=== PATIENT | male | born 1955 | race Caucasian/White ===

== ENCOUNTER → 2017-09-16 | Outpatient (CLI) | payer BC | LOC: M SMT 09:13 | PROVIDERS: ATTEND Urology | DX: Z08 Encounter for follow-up examination after completed treatment for malignant neoplasm (principal); Z85.46 Personal history of malignant neoplasm of prostate ==

== ENCOUNTER → 2018-09-17 | Outpatient (CLI) | payer BC | LOC: M SMT 13:36 | PROVIDERS: ATTEND Urology | DX: Z85.46 Personal history of malignant neoplasm of prostate (principal) ==

== ENCOUNTER → 2019-10-14 | Outpatient (CLI) | payer BC ==
[~2019-10-14] MED LIST: AMLO10CA22 PO; COMB0.2S OU; HYDR12CA PO; TRAV04OPD OU; ZYLO300T6 PO
== END ==
LOC: M PLALAB 13:52
PROVIDERS: ATTEND Urology
DX: Z85.46 Personal history of malignant neoplasm of prostate (principal)

== ENCOUNTER → 2019-10-19 | Outpatient (CLI) | payer BC ==
--- NOTE | 2019-10-19 14:59 | REP ---
MRI LEFT SHOULDER WITHOUT CONTRAST: HISTORY: Osteoarthritis left shoulder. No known injury. Pain radiating down the left arm. TECHNIQUE: Axial, oblique coronal, and oblique sagittal imaging planes are utilized. T1- and T2-weighted scans are obtained. MRI FINDINGS: There is moderate osteoarthritis of the acromioclavicular joint with hypertrophy, joint fluid, and spurring. There is subcortical cyst formation on either side of the AC joint. There is minimal inferolateral spurring of the acromion process. A moderate subacromial subdeltoid bursal effusion is seen on T2-weighted scans. There is a small glenohumeral joint effusion. There is a septated periarticular cyst at the inferior aspect of the glenoid measuring 19 mm in greatest diameter. There is a defect in the anterior inferior labrum, and this is felt to be a para labral cyst associated with a labral tear. There is an intraosseous subcortical cyst in this segment of the glenoid bone as well. T2-weighted scans demonstrate a full-thickness distal supraspinatus cuff tear approximately a centimeter from its distal attachment. There is diffuse tendonitis-tendinosis change. The infraspinatus tendon appears to be intact. The subscapularis tendon is unremarkable. Biceps tendon is in the bony bicipital groove and appears to be intact. Posterior labrum cartilage is unremarkable. There is some mild edema along the fibers of the subscapularis tendon in its scapular insertion. IMPRESSION: 1. Full-thickness distal supraspinatus cuff tear. Subacromial subdeltoid bursal effusion. 2. Advanced AC joint osteoarthritis. 3. Inferior and anterior aspect labral cartilage tear with subcortical cyst formation and para labral cyst formation. 4. Edema at the scapular origin of the subscapularis muscle. Electronically Signed by Dank Sebastian MD 10/19/2019 07:06 P
== END ==
LOC: M RAD 07:40
PROVIDERS: ATTEND Orthopaedic Surgery Sports Medicine
DX: M25.412 Effusion, left shoulder (principal); M75.122 Complete rotator cuff tear or rupture of left shoulder, not specified as traumatic; M71.312 Other bursal cyst, left shoulder; M19.012 Primary osteoarthritis, left shoulder; S43.492A Other sprain of left shoulder joint, initial encounter; Y92.9 Unspecified place or not applicable; Y93.9 Activity, unspecified; Y99.9 Unspecified external cause status

== ENCOUNTER → 2019-10-26 | Outpatient (REF) | payer BC ==
[2019-10-26 12:54] LABS: BLOOD UREA NITROGEN 11 MG/DL (7-18); CALCIUM LEVEL 8.7 MG/DL (8.8-10.2); CARBON DIOXIDE LEVEL 28 MEQ/L (21-32); CHLORIDE LEVEL 103 MEQ/L (98-107); CREATININE FOR GFR 0.77 MG/DL (0.70-1.30); GLOMERULAR FILTRATION RATE > 60.0 (>49); GLUCOSE, FASTING 99 MG/DL (70-100); POTASSIUM SERUM 4.1 MEQ/L (3.5-5.1); SODIUM LEVEL 137 MEQ/L (136-145)
== END ==
LOC: M LABDRAW1 12:02
PROVIDERS: ATTEND Urology
DX: R97.21 Rising PSA following treatment for malignant neoplasm of prostate (principal)

== ENCOUNTER → 2019-11-01 | Outpatient (CLI) | payer BC ==
--- NOTE | 2019-11-01 12:11 | REP ---
Radionuclide bone scan: Whole-body study. History: Rising PSA. Malignant prostate neoplasm. Comparison bone scan is from August 26, 2016. Technique: 22.0 mCi of technetium 99m MDP is injected and standard whole body bone scan imaging was acquired. Scintigraphic findings: There is normal distribution of skeletal tracer with uptake in bilateral kidneys and in the urinary bladder. There is arthritic uptake in the acromioclavicular joints bilaterally. Some osteoarthritic uptake is seen in the facet joints of the cervical spine similar to the prior study. There is increased uptake in the superior margin of the right hip joint today which is a subtle change from the prior study. This appearance is suggestive of arthropathy associated uptake, but I would suggest radiographs of the right hip to be obtained. There is also increased uptake in the region of the left heel. There is a focus of increased uptake in the right hand in what appears to be the second or third distal metacarpal or metacarpal phalangeal joint. This is visible in retrospect on the prior bone scans including the 2013 study and is consistent with arthropathy. There is mildly increased uptake in the manubrial clavicular joints bilaterally also unchanged from both prior studies. Impression: No compelling evidence of metastatic disease. A new area of increased uptake is seen at the right hip superiorly. Comparison radiographs suggested. Electronically Signed by Dank Sebastian MD 11/01/2019 06:53 P
== END ==
LOC: M RAD 07:41
PROVIDERS: ATTEND Urology
DX: R97.21 Rising PSA following treatment for malignant neoplasm of prostate (principal)
CPT/HCPCS: 78306; A9503

== ENCOUNTER → 2019-11-07 | Outpatient (CLI) | payer BC ==
[~2019-11-07] MED LIST changes: +ISOVUE-370 76% 100ML VIAL (Q9967) As Ordered ONE
--- NOTE | 2019-11-07 09:35 | REP ---
Clinical: History of prostate cancer with elevated PSA level. Technique: Axial contrast enhanced images from the lung bases to the pubic symphysis using 100 ml Isovue 370 intravenous contrast material with coronal and sagittal re-formations as well as delayed images of the abdomen. Comparison: 08/26/2016. Findings: Hepatic steatosis noted without focal hepatic lesion. Spleen, pancreas, gallbladder, bilateral adrenal glands and kidneys are normal. The enteric system is without obstruction or acute inflammatory process and a a sigmoid diverticula noted without acute diverticulitis. Pelvis demonstrates normal bladder and evidence for prior prostatectomy. There is a single new 16 mm lymph node along the left pelvic sidewall (image 108). No further adenopathy noted. No ascites. No obvious mass lesion. Osseous structures demonstrate degenerative changes without definite evidence for bony metastases. Impression: 1. A single new 16 mm lymph node along the left pelvic sidewall is nonspecific. No further adenopathy, or evidence for recurrence/metastatic disease noted. 2. Hepatic steatosis. 3. Scattered sigmoid diverticula. Electronically Signed by Gaetano Lincoln MD 11/07/2019 09:27 A
== END ==
LOC: M RAD 07:44
PROVIDERS: ATTEND Urology
DX: K57.30 Diverticulosis of large intestine without perforation or abscess without bleeding (principal); K76.0 Fatty (change of) liver, not elsewhere classified; R97.21 Rising PSA following treatment for malignant neoplasm of prostate
CPT/HCPCS: 74177; Q9967

== ENCOUNTER → 2019-11-17 | Outpatient (CLI) | payer BC ==
[~2019-11-17] MED LIST changes: -ISOVUE-370 76% 100ML VIAL (Q9967) As Ordered ONE
== END ==
LOC: M OUTALCOH 08:56
PROVIDERS: ATTEND Psychiatry & Neurology Addiction Medicine
DX: Z03.89 Encounter for observation for other suspected diseases and conditions ruled out (principal)

== ENCOUNTER 2019-11-21 15:56 | Outpatient (RCR) | payer BC | END 2019-11-26 | LOC: M OUTALCOH 15:56 | PROVIDERS: ATTEND Psychiatry & Neurology Addiction Medicine | DX: Z03.89 Encounter for observation for other suspected diseases and conditions ruled out (principal) ==

== ENCOUNTER → 2019-12-05 | Outpatient (REF) | payer BC | LOC: M LABSMT 15:21 | PROVIDERS: ATTEND Urology | DX: Z85.46 Personal history of malignant neoplasm of prostate (principal) ==

== ENCOUNTER → 2020-05-17 | Outpatient (CLI) | payer OTHER, SELFPAY | LOC: M PLALAB 11:12 | PROVIDERS: ATTEND Urology | DX: C61 Malignant neoplasm of prostate (principal); R97.21 Rising PSA following treatment for malignant neoplasm of prostate ==

== ENCOUNTER → 2020-10-05 | Outpatient (CLI) | payer MEDICARE ==
[~2020-10-05] MED LIST changes: +ESCI10TA16 PO
== END ==
LOC: M PLALAB 13:18
PROVIDERS: ATTEND Urology
DX: Z12.5 Encounter for screening for malignant neoplasm of prostate (principal)
CPT/HCPCS: 36415; G0103

== ENCOUNTER → 2020-10-07 | Outpatient (CLI) | payer BC, MEDICARE, SELFPAY ==
[~2020-10-07] MED LIST changes: -ESCI10TA16 PO; +ESCI10TA2 PO
== END ==
LOC: M LABSMTC 08:11
PROVIDERS: ATTEND Anesthesiology
DX: Z01.812 Encounter for preprocedural laboratory examination (principal); Z20.822 Contact with and (suspected) exposure to COVID-19

== ENCOUNTER 2020-10-12 06:25 | Day surgery (SDC) | payer MEDICARE ==
[~2020-10-12] VITALS: Ht 160 cm; Wt 91.2 kg
[~2020-10-12 06:25] MED LIST changes: +ESCI10TA16 PO; -ESCI10TA2 PO
--- OUTSIDE RECORDS SUMMARY | 2020-10-12 06:29 | CCD | Continuity of Care Document ---
Author Author Benigno WINTER M.D. Organization Unknown Address [address] [place] [id number] Phone [phone] Problems Active Problems Provider Date Benign essential hypertension Kirit Winter M.D. Onset: 07/25/2013 Essential hypertension Kirit Winter M.D. Onset: 2014 Social History Type Date Description Comments Sex Unknown ETOH Use Dinks 4 Drinks Liquor per day Tobacco Use Start: Unknown End: Unknown Patient is a former smoker Cigarettes- Quit 2004 Recreational Drug Use Denies Drug Use Allergies, Adverse Reactions, Alerts Active Allergies Reaction Severity Comments Date No Known Drug Allergy 2012 Medications Active Medications SIG Qnty Indications Ordering Provide r Date Lexapro 10mg Tablets 1 by mouth every day 30tabs Kirit Winter M.D. 10/03/2020 Cyclobenzaprine HCL 10mg Tablets take one tablet by mouth at bedtime as needed 30tabs Tamiko Winter M.D. 03/11/2019 Shingrix 50mcg/0.5ML Suspension Re c as directed 1units Kirit Winter M.D. 08/30/20 18 Amlodipine Besylate/Benazepril Hydrochlo ride 10-20mg Capsules take 1 capsule daily, maximum daily dose 1 90caps Kirit Winter M.D. 12/01/2016 Allopurinol 300mg Tablets take 1 tablet daily 90tabs Kirit Winter M.D. 04/15/20 16 Hydrochlorothiazide 12.5mg Capsule s take 1 capsule daily 90Kirit Rogers M.D. 12/26/19 16 Travatan Z 0.004% Solution as directed Unknown 07/25/2013 Combigan 0.2-0.5% Solution 1 qtt both eyes twice a day Unknown Acetaminophen 500mg Tablets 2 tabs by mouth qam OTC Unknown Immunizations CPT Code Status Date Vaccine Lot # 33967 Given 08/24/2018 Influenza Virus Vaccine, Quadrivalent, Slit Virus, Im Use 3Y & Up [id number] 53857 Given 08/11/2017 Influenza Virus Vaccine, Quadrivalent, Slit Virus, Im Use 3Y & Up [id number] 10313 Given 07/25/2016 Influenza Virus Vaccine, Quadrivalent, Slit Virus, Im Use 3Y & Up [id number] 13941 Given 06/27/2015 Influenza Virus Vac. Split Virus Individuals 3 Years And Above [id number] Vital Signs Date Vital Result Comment 10/03/2020 9:54am BP Systolic 120 mmHg BP Diastolic 70 mmHg Body Temperature 97.5 F Heart Rate 70 /min Respiratory Rate 12 /min Height 63 inches 5'3" Weight 206.00 lb [place] Body Weight 124 lb BMI (Body Mass Index) 36.5 kg/m2 O2 % BldC Oximetry 97 % 03/23/2020 10:42am BP Systolic 116 mmHg BP Diastolic 70 mmHg Body Temperature 97.5 F Heart Rate 86 /min Respiratory Rate 18 /min Height 63 inches 5'3" Weight 195.00 lb [place] Body Weight 124 lb BMI (Body Mass Index) 34.5 kg/m2 O2 % BldC Oximetry 96 % Results Test Acquired Date Facility Test Result H/L Range Note CMP 10/03/2020 [facility] Glu 161 mg/dL High 70 - 110 1 BUN 11 mg/dL 8 - 23 Creat 0.7 mg/dL 0.7 - 1.2 BUN/Creatinine Ratio 16.3 CALC Na 140 mmol/L 136 - 145 K 3.1 mmol/L Low 3.5 - 5.1 CL 103.0 mmol/L 98.0 - 107.0 Co2 22.4 mmol/L 22.0 - 29.0 CA 8.7 mg/dL 8.6 - 10.2 TP 6.3 g/dL Low 6.6 - 8.7 Alb 4.3 g/dL 3.5 - 5.2 A/G Ratio 2.1 CALC Globulin 2.0 CALC Alp 62.3 U/L 40 - 129 Alt (SGPT) 92 U/L High 0 - 41 Ast (Sgot) 78 U/L High 0 - 40 Tbili 0.41 mg/dL 0.0 - 1.2 Osmolality-Calculated 281.8 CALC Anion Gap 17 mmol/L eGFR 112 # Calc 2 eGFR Non-Afr. Cypriot 97 # Calc 3 Laboratory test finding 10/03/2020 [facility] Uric Acid 6.2 mg/dL 3.4 - 7.0 1 CHRONIC KIDNEY DISEASE STAGI NG PER NKF: MALE GFR INTERPRETATION: 20-49 YRS: >60 mL/min Normal 50-59 YRS: >56 mL/min Normal 60-69 YRS: >49 mL/min Normal 70-79 YRS: >42 mL/min Normal 80 and above >35 mL/min Normal FEMALE GRF INTERPRETATION: 20-39 YRS: >60 mL/min Normal 40-49 YRS: >58 mL/min Normal 50-59 YRS: >51 mL/min Normal 60-69 YRS: >45 mL/min Normal 70-79 YRS: >39 mL/min Normal 80 and above >32 mL/min Normal 2 CKD-EPI 3 CKD-EPI Procedures Description No Information Available Medical Devices Description No Information Available Encounters Type Date Location Provider Dx Diagnosis Office Visit 10/03/2020 10:20a [place] [facility] Kirit Winter M. D. I10 Essential (primary) hypertension R74.01 Elevation of levels of liver transaminase levels M10.9 Gout, unspecified Assessments Date Code Description Provider 10/03/2020 I10 Essential (primary) hypertension Kirit Winter M.D. 10/03/2020 R74.01 Elevation of levels of liver tra nsaminase levels Kirit Winter M.D. 10/03/2020 M10.9 Gout, unspecified Baljit Winter M.D. Plan of Treatment Future Appointment(s):* 11/12/2020 11:00 am - Kirit Winter M.D. at [facility] Functional Status Description No Information Available Mental Status Description No Information Available Referrals Refer to Reason for Referral Status Appt Date [facility] right hip pain- eval and rx Sent [address] [place] [address] [phone]
--- OUTSIDE RECORDS SUMMARY | 2020-10-12 06:29 | CCD | Continuity of Care Document ---
Author Author Benigno WINTER M.D. Organization Unknown Address [address] [place] [address] Phone [phone] Problems Active Problems Provider Date Benign essential [...] by mouth at bedtime as needed 30tabs Tmaiko Winter M.D. 03/11/2019 Shingrix 50mcg/0.5ML Suspension Re [...] CPT Code Status Date Vaccine Lot # [id number] Given 08/24/2018 Influenza Virus Vaccine, Quadrivalent, Slit Virus, Im Use 3Y & Up [id number] 89011 Given 08/11/2017 Influenza Virus Vaccine, Quadrivalent, Slit Virus, Im Use 3Y & Up [id number] 40808 Given 07/25/2016 Influenza Virus Vaccine, Quadrivalent, Slit Virus, Im Use 3Y & Up [id number] 03147 Given 06/27/2015 Influenza Virus Vac. Split Virus Individuals 3 Years And Above [id number] Vital Signs Date Vital Result Comment 10/03/2020 9:54am BP Systolic 120 mmHg BP Diastolic 70 mmHg Body Temperature 97.5 F Heart Rate 70 /min Respiratory Rate 12 /min Height 63 inches 5'3" Weight 206.00 lb [place] Body Weight 124 lb BMI (Body Mass Index) 36.5 kg/m2 O2 % BldC Oximetry 97 % 03/23/2020 10:42am BP Systolic 116 mmHg BP Diastolic 70 mmHg Body Temperature 97.5 F Heart Rate 86 /min Respiratory Rate 18 /min Height 63 inches 5'3" Weight 195.00 lb [place] Body Weight 124 lb BMI (Body Mass [...] eGFR 112 # Calc 2 eGFR Non-Afr. Turkish 97 # Calc 3 Laboratory test finding [...] Provider Dx Diagnosis Office Visit 10/03/2020 10:20a [place] [facility] Kirit Winter M. D. I10 Essential [...] 11:00 am - Kirit Winter M.D. at [facility] Functional Status Description No Information Available Mental Status Description No Information Available Referrals Refer to Reason for Referral Status Appt Date [facility] right hip pain- eval and rx Sent [address] [place] [address] [phone]
--- OUTSIDE RECORDS SUMMARY | 2020-10-12 06:29 | CCD | Continuity of Care Document ---
Author Author Benigno WINTER M.D. Organization Unknown Address [address] [place] [phone] Phone [phone] Problems Active Problems Provider Date Benign essential [...] CPT Code Status Date Vaccine Lot # [id number] Given 08/24/2018 Influenza Virus Vaccine, Quadrivalent, Slit Virus, Im Use 3Y & Up [id number] 56096 Given 08/11/2017 Influenza Virus Vaccine, Quadrivalent, Slit Virus, Im Use 3Y & Up [id number] 58513 Given 07/25/2016 Influenza Virus Vaccine, Quadrivalent, Slit Virus, Im Use 3Y & Up [id number] 64217 Given 06/27/2015 Influenza Virus Vac. Split Virus Individuals 3 Years And Above [id number] Vital Signs Date Vital Result Comment 10/03/2020 9:54am BP Systolic 120 mmHg BP Diastolic 70 mmHg Body Temperature 97.5 F Heart Rate 70 /min Respiratory Rate 12 /min Height 63 inches 5'3" Weight 206.00 lb [place] Body Weight 124 lb BMI (Body Mass Index) 36.5 kg/m2 O2 % BldC Oximetry 97 % 03/23/2020 10:42am BP Systolic 116 mmHg BP Diastolic 70 mmHg Body Temperature 97.5 F Heart Rate 86 /min Respiratory Rate 18 /min Height 63 inches 5'3" Weight 195.00 lb [place] Body Weight 124 lb BMI (Body Mass Index) 34.5 kg/m2 O2 % BldC Oximetry 96 % Results Description No Information Available Procedures Description No Information Available Medical Devices Description No Information Available Encounters Type Date Location Provider Dx Diagnosis Office Visit 10/03/2020 10:20a [place] [facility] Kirit Winter M. D. I10 Essential (primary) hypertension R74.01 Elevation of levels of liver transaminase levels M10.9 Gout, unspecified Assessments Date Code Description Provider 10/03/2020 I10 Essential (primary) hypertension Kirit Winter M.D. 10/03/2020 R74.01 Elevation of levels of liver tra nsaminase levels Kirit Winter M.D. 10/03/2020 M10.9 Gout, unspecified Baljit Winter M.D. Plan of Treatment No Information Available Functional Status Description No Information Available Mental Status Description No Information Available Referrals Refer to Dr Reason for Referral Status Appt Date [facility] right hip pain- eval and rx Created [address] [place] [address] [phone]
--- OUTSIDE RECORDS SUMMARY | 2020-10-12 06:30 | CCD ---
Author Author [facility] Organization [facility] Address Unknown Phone Unavailable Care Team Providers Care Block Inspector Name Role Phone Jannie WINTER MD Unavailable Unavailable Jannie WINTER MD Unavailable Unavailable Jannie WINTER MD Unavailable Unavailable Jannie WINTER MD Unavailable Unavailable Jannie WINTER MD Unavailable Unavailable Jannie WINTER MD Unavailable Unavailable Jannie WINTER MD Unavailable Unavailable Jannie WINTER MD Unavailable Unavailable Jannie WINTER MD Unavailable Unavailable Jannie WINTER MD Unavailable Unavailable Jannie WINTER MD Unavailable Unavailable Jannie WINTER MD Unavailable Unavailable Jannie WINTER MD Unavailable Unavailable Jannie WINTER MD Unavailable Unavailable Jannie WINTER MD Unavailable Unavailable Jannie WINTER MD Unavailable Unavailable Jannie WINTER MD Unavailable Unavailable Jannie WINTER MD Unavailable Unavailable Jannie WINTER MD Unavailable Unavailable Jannie WINTER MD Unavailable Unavailable Jannie WINTER MD Unavailable Unavailable Jannie WINTER MD Unavailable Unavailable Jannie WINTER MD Unavailable Unavailable Jannie WINTER MD Unavailable Unavailable Jannie WINTER MD Unavailable Unavailable Jannie WINTER MD Unavailable Unavailable Jannie WINTER MD Unavailable Unavailable Jannie WINTER MD Unavailable Unavailable Jannie WINTER MD Unavailable Unavailable Jannie WINTER MD Unavailable Unavailable Jannie WINTER MD Unavailable Unavailable Jannie WINTER MD Unavailable Unavailable Jannie WINTER MD Unavailable Unavailable Jannie WINTER MD Unavailable Unavailable Jannie WINTER MD Unavailable Unavailable Jannie WINTER MD Unavailable Unavailable Jannie WINTER MD Unavailable Unavailable Jannie WINTER MD Unavailable Unavailable Jannie WINTER MD Unavailable Unavailable Jannie WINTER MD Unavailable Unavailable Jannie WINTER MD Unavailable Unavailable Jannie WINTER MD Unavailable Unavailable Jannie WINTER MD Unavailable Unavailable Jannie WINTER MD Unavailable Unavailable MOY, H JEFF MD Unavailable Unavailable MOY, H JEFF MD Unavailable Unavailable MOY, H JEFF MD Unavailable Unavailable MOY, H JEFF MD Unavailable Unavailable MOY, H JEFF MD Unavailable Unavailable MOY, H JEFF MD Unavailable Unavailable MOY, H JEFF MD Unavailable Unavailable MOY, H JEFF MD Unavailable Unavailable MOY, H JEFF MD Unavailable Unavailable MOY, H JEFF MD Unavailable Unavailable MOY, H JEFF MD Unavailable Unavailable MOY, H JEFF MD Unavailable Unavailable MOY, H JEFF MD Unavailable Unavailable MOY, H JEFF MD Unavailable Unavailable MOY, H JEFF MD Unavailable Unavailable MOY, H JEFF MD Unavailable Unavailable MOY, H JEFF MD Unavailable Unavailable MOY, H JEFF MD Unavailable Unavailable MOY, H JEFF MD Unavailable Unavailable MOY, H JEFF MD Unavailable Unavailable MOY, H JEFF MD Unavailable Unavailable MOY, H JEFF MD Unavailable Unavailable MOY, H JEFF MD Unavailable Unavailable MOY, H JEFF MD Unavailable Unavailable MOY, H JEFF MD Unavailable Unavailable MOY, H JEFF MD Unavailable Unavailable MOY, H JEFF MD Unavailable Unavailable MOY, H JEFF MD Unavailable Unavailable MOY, H JEFF MD Unavailable Unavailable MOY, H JEFF MD Unavailable Unavailable MOY, H JEFF MD Unavailable Unavailable Michel, Ani Loretta PA Unavailable Unavailable Michel, Ani Loretta PA Unavailable Unavailable Michel, Ani Loretta PA Unavailable Unavailable Michel, Ani Loretta PA Unavailable Unavailable Michel, Ani Loretta PA Unavailable Unavailable Michel, Ani Loretta PA Unavailable Unavailable Michel, Ani Loretta PA Unavailable Unavailable Michel, Ani Loretta PA Unavailable Unavailable Michel, Ani Loretta PA Unavailable Unavailable Michel, Ani Loretta PA Unavailable Unavailable Re-disclosure Warning The records that you are about to access may contain information from federally-assisted alcohol or drug abuse programs. If such information is present, then the following federally mandated warning applies: This information has been disclosed to you from records protected by federal confidentiality rules (42 CFR part 2). The federal rules prohibit you from making any further disclosure of this information unless further disclosure is expressly permitted by the written consent of the person to whom it pertains or as otherwise permitted by 42 CFR part 2. A general authorization for the release of medical or other information is NOT sufficient for this purpose. The Federal rules restrict any use of the information to criminally investigate or prosecute any alcohol or drug abuse patient.The records that you are about to access may contain highly sensitive health information, the redisclosure of which is protected by Article 27-F of the [facility] Public Health law. If you continue you may have access to information: Regarding HIV / AIDS; Provided by facilities licensed or operated by the [facility] Office of Mental Health; or Provided by the [facility] Office for People With Developmental Disabilities. If such information is present, then the following [facility] mandated warning applies: This information has been disclosed to you from confidential records which are protected by state law. State law prohibits you from making any further disclosure of this information without the specific written consent of the person to whom it pertains, or as otherwise permitted by law. Any unauthorized further disclosure in violation of state law may result in a fine or mcc sentence or both. A general authorization for the release of medical or other information is NOT sufficient authorization for further disc losure. Family History Family Member Name Family Member Gender Family Member Status Date o f Status Description Data Source(s) Unknown Unknown Problem MEDENT ([facility] Unknown Unknown Problem MEDENT ([facility] ) Encounters Encounter Providers Location Date Indications Data Source(s ) Outpatient Attender: JEFF WINTER MD [place] [facility] 02/2021 09:20:00 AM EST [facility] ([facility] [address] [place] [phone] 05/17/2020 12:00:00 AM EDT eCW1 ([facility]) Outpatient Attender: JEFF WINTER MD [place] [facility] 10:40:00 AM EDT MEDENT ([facility] [address] [place] [phone] 12/09/2019 12:00:00 AM EDT eCW1 ([facility] [address] [place] [phone] 12/09/2019 12:00:00 AM EDT eCW1 ([facility]) Outpatient 11/17/2019 03:05:00 PM EST [facility] [address] [place] [phone] 11/11/2019 12:00:00 AM EST eCW1 ([facility]) Outpatient 11/09/2019 02:33:00 PM EST [facility] [address] [place] [phone] 11/07/2019 12:00:00 AM EST eCW1 ([facility]) Outpatient 10/24/2019 01:07:00 PM EST [facility] [address] [place] [phone] 10/17/2019 12:00:00 AM EST eCW1 ([facility]) [facility] [address] [place] [phone] 10/14/2019 12:00:00 AM EST eCW1 ([facility]) Outpatient Attender: Loretta Oakley stefanie 10/08/2019 09:15:00 AM EST MEDENT ([facility]) Outpatient Attender: JEFF WINTER MD [place] [facility] 02:40:00 PM EST MEDENT ([facility] Immunizations Vaccine Date Status Description Data Source(s) INFLUENZA VACCINE QUADRIVALENT (65 YR UP)/MF59 C.1/PF 08/15/2020 12:00:00 AM EST completed [facility] Medications Medication Brand Name Start Date Product Form Dose Route Admi nistrative Instructions Pharmacy Instructions Status Indications Reaction Description Data Source(s) Escitalopram 10 MG Oral Tablet [Lexapro] Lexapro 10/03/2020 12:00: 00 AM EST ORAL active MEDENT ([facility] Escitalopram 10 MG Oral Tablet ESCITALOPRAM OXALATE 10/03/2020 1 2:00:00 AM EST tablet 30 TAKE ONE TABLET BY MOUTH EVERY D AY TAKE ONE TABLET BY MOUTH EVERY DAY SOLD: 10/03/2020 [facility] 0.2-0.5 % 07/19/2020 12:00:00 AM EDT drops 20 INSTILL ONE DROP IN EACH EYE TWO TIMES A DAY DIRECTED INSTILL ONE DROP IN EACH EYE TWO TIMES A DAY DIRECTED SOLD: 07/20/2020 [facility] 300 mg 07/18/2020 12:00:00 AM EDT tablet 90 TAKE ONE TABLET BY MOUTH DAILY TAKE ONE TABLET BY MOUTH DAILY SOLD: 07/20/2020 [facility] 12.5 mg 07/10/2020 12:00:00 AM EDT capsule 90 TAKE ONE CAPSULE BY MOUTH EVERY DAY TAKE ONE CAPSULE BY MOUTH EVERY DAY SOLD: 07/11/2020 [facility] 12.5 mg 07/10/2020 12:00:00 AM EDT capsule 90 TAKE ONE CAPSULE BY MOUTH EVERY DAY TAKE ONE CAPSULE BY MOUTH EVERY DAY SOLD: 10/08/2020 [facility] 0.004 % 06/25/2020 12:00:00 AM EDT drops 7 INSTILL 1 DROP INTO BOTH EYES AT BEDTIME DIRECTED INSTILL 1 DROP INTO BOTH EYES AT BEDTIME DIRECTED S OLD: 09/05/2020 [facility] 0.004 % 06/25/2020 12:00:00 AM EDT drops 7 INSTILL 1 DROP INTO BOTH EYES AT BEDTIME DIRECTED INSTILL 1 DROP INTO BOTH EYES AT BEDTIME DIRECTED S OLD: 06/25/2020 [facility] 10-20 mg 05/19/2020 12:00:00 AM EDT capsule 90 TAKE ONE CAPSULE BY MOUTH EVERY DAY TAKE ONE CAPSULE BY MOUTH EVERY DAY SOLD: 05/21/2020 [facility] 10-20 mg 05/19/2020 12:00:00 AM EDT capsule 90 TAKE ONE CAPSULE BY MOUTH EVERY DAY TAKE ONE CAPSULE BY MOUTH EVERY DAY SOLD: 09/11/2020 [facility] 17.5-3.13-1.6 gram 12/02/2019 12:00:00 AM EST recon soln 354 TAKE PER DOCTOR'S BOWEL PREP INSTRUCTIONS TAKE PER DOCTOR'S BOWEL PREP INSTRUCTIONS SOLD: 12/02/2019 [facility] benzonatate 100 MG Oral Capsule BENZONATATE 10/08/2019 12:00:00 AM EST capsule 30 TAKE ONE CAPSULE BY MOUTH EVERY 8 HOURS NEEDED FOR COUGHING TAKE ONE CAPSULE BY MOUTH EVERY 8 HOURS NEEDED FOR COUGHING SOLD: 10/08/2019 [facility] benzonatate 100 MG Oral Capsule Benzonatate 10/08/2019 12:00:00 AM EST ORAL active MEDENT ([facility]) Insurance Providers Payer name Policy type / Coverage type Policy ID Covered libertarian ID Covered libertarian's relationship to coronado Policy [place] Plan Information AET MEDICARE [id number] SP [id number] AETNA MEDICARE [id number] SP [id number] SELF PAY ONLY SP BCBS [place] P[place] 302/307 [id number] SP [id number] AETNA MEDICARE [id number] SP [id number] AETNA MEDICARE [id number] SP [id number] MEDICARE [id number] SP [id number] LIFETIME BENEFIT SOLUTIONS [id number] SP [id number] [place]/307 [id number] SP [id number] [place] 302/307 [id number] SP [id number] EXCELLUS BCBS B [id number] S [id number] BCBS/[place] Commercial [id number] [place] [id number] ANSI-Commercial [id number] BCBS/[employer] Commercial [id number] [place] [id number] ANSI-Commercial [id number] BCBS/[employer] Commercial [id number] [place] [id number] BC[place] Commercial [id number] [place] [id number] BCBS/[place] Commercial [id number] [place] [id number] BCBS/[place] Commercial Self Excell[employer] BCBS Health Maintenance Organization (HMO) Self BCBS [place] PPO 302/307 [id number] SP [id number] Problems, Conditions, and Diagnoses Code Display Name Description Problem Type Effective Dates Data Source(s) C61 Prostate cancer Prostate cancer Problem 12/09/2019 12:0 0:00 AM EDT eCW1 ([facility]) Surgeries/Procedures Procedure Description Date Indications Data Source(s) Office Visit, Est Pt., Level 2 FC 12/09/2019 12:00:00 AM EDT eCW1 ([facility]) Office Visit, Est Pt., Level 3 PC 12/09/2019 12:00:00 AM EDT eCW1 ([facility]) CHEMO HORMON ANTINEOPL SQ/IM 11/11/2019 12:00:00 AM ES T eCW1 ([facility]) Leuprolide acetate (for depot suspension), 7.5 mg 11/11/2019 12:00:00 AM EST eCW1 ([facility]) Results ID Date Data Source [id number] 10/07/2020 09:00:00 AM EST [facility] Name Value Range Interpretation Code Description Data Daniella rce(s) Supporting Document(s) SARS coronavirus 2 RNA Not Detected [facility] This lab was ordered by [facility] and reported by [facility]. ID Date Data Source [id number] 10/03/2020 10:05:00 AM EST MEDENT ([facility] Name Value Range Interpretation Code Description Data Daniella rce(s) Supporting Document(s) Urate [Mass/volume] in Serum or Plasma 6.2 mg/dL 3.4-7.0 [facility] ([facility] CHRONIC KIDNEY DISEASE STAGING PER NKF: MALE GFR INTERPRETATION: 20-49 YRS: [...] Normal 80 and above >32 mL/min Normal ID Date Data Source [id number] 10/03/2020 10:05:00 AM EST [facility] ([facility] Name Value Range Interpretation Code Description Data Daniella rce(s) Supporting Document(s) Glu 161 mg/dL 70-110 Above high normal [facility] ([facility] CHRONIC KIDNEY DISEASE STAGING PER NKF: MALE GFR INTERPRETATION: 20-49 YRS: [...] Normal 80 and above >32 mL/min Normal BUN 11 mg/dL 8-23 MEDENT ([facility] CHRONIC KIDNEY DISEASE STAGING PER NKF: MALE GFR INTERPRETATION: 20-49 YRS: [...] Normal 80 and above >32 mL/min Normal Creat 0.7 mg/dL 0.7-1.2 MEDENT ([facility] CHRONIC KIDNEY DISEASE STAGING PER NKF: MALE GFR INTERPRETATION: 20-49 YRS: [...] Normal 80 and above >32 mL/min Normal BUN/Creatinine Ratio 16.3 CALC MEDENT ([facility] CHRONIC KIDNEY DISEASE STAGING PER NKF: MALE GFR INTERPRETATION: 20-49 YRS: [...] Normal 80 and above >32 mL/min Normal Na 140 mmol/L 136-145 MEDENT ([facility] CHRONIC KIDNEY DISEASE STAGING PER NKF: MALE GFR INTERPRETATION: 20-49 YRS: [...] Normal 80 and above >32 mL/min Normal K 3.1 mmol/L 3.5-5.1 Below low normal MEDENT ( [facility] CHRONIC KIDNEY DISEASE STAGING PER NKF: MALE GFR INTERPRETATION: 20-49 YRS: [...] Normal 80 and above >32 mL/min Normal Co2 22.4 mmol/L 22.0-29.0 MEDENT ([facility] CHRONIC KIDNEY DISEASE STAGING PER NKF: MALE GFR INTERPRETATION: 20-49 YRS: [...] Normal 80 and above >32 mL/min Normal CL 103.0 mmol/L 98.0-107.0 MEDENT ([facility] CHRONIC KIDNEY DISEASE STAGING PER NKF: MALE GFR INTERPRETATION: 20-49 YRS: [...] Normal 80 and above >32 mL/min Normal TP 6.3 g/dL 6.6-8.7 Below low normal MEDENT ( [facility] CHRONIC KIDNEY DISEASE STAGING PER NKF: MALE GFR INTERPRETATION: 20-49 YRS: [...] Normal 80 and above >32 mL/min Normal CA 8.7 mg/dL 8.6-10.2 MEDENT ([facility] CHRONIC KIDNEY DISEASE STAGING PER NKF: MALE GFR INTERPRETATION: 20-49 YRS: [...] Normal 80 and above >32 mL/min Normal Alb 4.3 g/dL 3.5-5.2 MEDENT ([facility] CHRONIC KIDNEY DISEASE STAGING PER NKF: MALE GFR INTERPRETATION: 20-49 YRS: [...] Normal 80 and above >32 mL/min Normal A/G Ratio 2.1 CALC MEDENT ([facility] CHRONIC KIDNEY DISEASE STAGING PER NKF: MALE GFR INTERPRETATION: 20-49 YRS: [...] Normal 80 and above >32 mL/min Normal Globulin 2.0 CALC [facility] ([facility] CHRONIC KIDNEY DISEASE STAGING PER NKF: MALE GFR INTERPRETATION: 20-49 YRS: [...] Normal 80 and above >32 mL/min Normal Ast (Sgot) 78 U/L 0-40 Above high normal MED[facility] ([facility] CHRONIC KIDNEY DISEASE STAGING PER NKF: MALE GFR INTERPRETATION: 20-49 YRS: [...] Normal 80 and above >32 mL/min Normal Alp 62.3 U/L 40-129 MEDENT ([facility] CHRONIC KIDNEY DISEASE STAGING PER NKF: MALE GFR INTERPRETATION: 20-49 YRS: [...] Normal 80 and above >32 mL/min Normal Alt (SGPT) 92 U/L 0-41 Above high normal [facility] ([facility] CHRONIC KIDNEY DISEASE STAGING PER NKF: MALE GFR INTERPRETATION: 20-49 YRS: [...] Normal 80 and above >32 mL/min Normal Anion Gap 17 mmol/L MEDENT ([facility] CHRONIC KIDNEY DISEASE STAGING PER NKF: MALE GFR INTERPRETATION: 20-49 YRS: [...] Normal 80 and above >32 mL/min Normal Tbili 0.41 mg/dL 0.0-1.2 [facility] ([facility] CHRONIC KIDNEY DISEASE STAGING PER NKF: MALE GFR INTERPRETATION: 20-49 YRS: [...] Normal 80 and above >32 mL/min Normal Osmolality-Calculated 281.8 CALC MED ENT ([facility] CHRONIC KIDNEY DISEASE STAGING PER NKF: MALE GFR INTERPRETATION: 20-49 YRS: [...] Normal 80 and above >32 mL/min Normal eGFR Non-Afr. Swazi 97 # MEDENT ([facility] CHRONIC KIDNEY DISEASE STAGING PER NKF: MALE GFR INTERPRETATION: 20-49 YRS: [...] Normal 80 and above >32 mL/min Normal eGFR 112 # MEDENT ( [facility] CHRONIC KIDNEY DISEASE STAGING PER NKF: MALE GFR INTERPRETATION: 20-49 YRS: [...] Normal 80 and above >32 mL/min Normal ID Date Data Source [id number] 09/10/2020 12:00:00 AM EST [facility] Name Value Range Interpretation Code Description Data Daniella rce(s) Supporting Document(s) [facility]2 [facility] by [facility] and reported by [facility]. ID Date Data Source [id number] 09/10/2020 12:00:00 AM EST [facility] Name Value Range Interpretation Code Description Data Daniella rce(s) Supporting Document(s) 2019 Novel Coronavirus RNA [facility] This lab was ordered by [facility] and reported by [facility]. ID Date Data Source [id number] 03/16/2020 09:03:00 AM EDT MEDENT ([facility] Name Value Range Interpretation Code Description Data Daniella rce(s) Supporting Document(s) Urate [Mass/volume] in Serum or Plasma 5.9 mg/dL 3.4-7.0 DULCE ([facility] CHRONIC KIDNEY DISEASE STAGING PER NKF: MALE GFR INTERPRETATION: 20-49 YRS: [...] mL/min Normal 80 and above >32 mL/min NormalCLASSIFICATION CHOLESTEROL FOR ADULTS CHILDREN/ADOLESCENTS* DESIRABLE: <200 MG/DL <170 MG/DL BORDER-LINE HIGH RISK: 200-239 MG/DL 170-199 MG/DL HIGH RISK: >240 MG/DL >200 MG/DL CLASS. FOR PRIMARY LDL CHOL PREVENTION: LDL CHOL-CHILD/ADOLESCENTS* DESIRABLE: <130 MG/DL <110 MG/DL BORDERLINE-HIGH RISK: 130- 159 MG/DL 110-129 MG/DL HIGH RISK: >160 MG/DL >130 MG/DL *CHILDREN AND ADOLESCENTS REPRESENTS INDIVIDUALA AGED 2-19 YEARS EXCLUSIVE. ID Date Data Source [id number] 03/16/2020 09:03:00 AM JONES CARDONA ([facility] Name Value Range Interpretation Code Description Data Daniella rce(s) Supporting Document(s) Chol 186 mg/dL 0-200 DULCE ([facility] CHRONIC KIDNEY DISEASE STAGING PER NKF: MALE GFR INTERPRETATION: 20-49 YRS: [...] mL/min Normal 80 and above >32 mL/min NormalCLASSIFICATION CHOLESTEROL FOR ADULTS CHILDREN/ADOLESCENTS* DESIRABLE: <200 MG/DL <170 MG/DL BORDER-LINE HIGH RISK: 200-239 MG/DL 170-199 MG/DL HIGH RISK: >240 MG/DL >200 MG/DL CLASS. FOR PRIMARY LDL CHOL PREVENTION: LDL CHOL-CHILD/ADOLESCENTS* DESIRABLE: <130 MG/DL <110 MG/DL BORDERLINE-HIGH RISK: 130- 159 MG/DL 110-129 MG/DL HIGH RISK: >160 MG/DL >130 MG/DL *CHILDREN AND ADOLESCENTS REPRESENTS INDIVIDUALA AGED 2-19 YEARS EXCLUSIVE. Trig 84 mg/dL 35-200 [facility] ([facility] CHRONIC KIDNEY DISEASE STAGING PER NKF: MALE GFR INTERPRETATION: 20-49 YRS: [...] mL/min Normal 80 and above >32 mL/min NormalCLASSIFICATION CHOLESTEROL FOR ADULTS CHILDREN/ADOLESCENTS* DESIRABLE: <200 MG/DL <170 MG/DL BORDER-LINE HIGH RISK: 200-239 MG/DL 170-199 MG/DL HIGH RISK: >240 MG/DL >200 MG/DL CLASS. FOR PRIMARY LDL CHOL PREVENTION: LDL CHOL-CHILD/ADOLESCENTS* DESIRABLE: <130 MG/DL <110 MG/DL BORDERLINE-HIGH RISK: 130- 159 MG/DL 110-129 MG/DL HIGH RISK: >160 MG/DL >130 MG/DL *CHILDREN AND ADOLESCENTS REPRESENTS INDIVIDUALA AGED 2-19 YEARS EXCLUSIVE. Cholesterol in HDL [Mass/volume] in Serum or Plasma 70 mg/dL 35-55 Above high normal MEDENT ([facility] CHRONIC KIDNEY DISEASE STAGING PER NKF: MALE GFR INTERPRETATION: 20-49 YRS: [...] mL/min Normal 80 and above >32 mL/min NormalCLASSIFICATION CHOLESTEROL FOR ADULTS CHILDREN/ADOLESCENTS* DESIRABLE: <200 MG/DL <170 MG/DL BORDER-LINE HIGH RISK: 200-239 MG/DL 170-199 MG/DL HIGH RISK: >240 MG/DL >200 MG/DL CLASS. FOR PRIMARY LDL CHOL PREVENTION: LDL CHOL-CHILD/ADOLESCENTS* DESIRABLE: <130 MG/DL <110 MG/DL BORDERLINE-HIGH RISK: 130- 159 MG/DL 110-129 MG/DL HIGH RISK: >160 MG/DL >130 MG/DL *CHILDREN AND ADOLESCENTS REPRESENTS INDIVIDUALA AGED 2-19 YEARS EXCLUSIVE. LDL_C 99 Calc 75-129 MEDENT ([facility] CHRONIC KIDNEY DISEASE STAGING PER NKF: MALE GFR INTERPRETATION: 20-49 YRS: [...] mL/min Normal 80 and above >32 mL/min NormalCLASSIFICATION CHOLESTEROL FOR ADULTS CHILDREN/ADOLESCENTS* DESIRABLE: <200 MG/DL <170 MG/DL BORDER-LINE HIGH RISK: 200-239 MG/DL 170-199 MG/DL HIGH RISK: >240 MG/DL >200 MG/DL CLASS. FOR PRIMARY LDL CHOL PREVENTION: LDL CHOL-CHILD/ADOLESCENTS* DESIRABLE: <130 MG/DL <110 MG/DL BORDERLINE-HIGH RISK: 130- 159 MG/DL 110-129 MG/DL HIGH RISK: >160 MG/DL >130 MG/DL *CHILDREN AND ADOLESCENTS REPRESENTS INDIVIDUALA AGED 2-19 YEARS EXCLUSIVE. Cho/HDL Ratio 2.6 CALC [facility] CHRONIC KIDNEY DISEASE STAGING PER NKF: MALE GFR INTERPRETATION: 20-49 YRS: [...] mL/min Normal 80 and above >32 mL/min NormalCLASSIFICATION CHOLESTEROL FOR ADULTS CHILDREN/ADOLESCENTS* DESIRABLE: <200 MG/DL <170 MG/DL BORDER-LINE HIGH RISK: 200-239 MG/DL 170-199 MG/DL HIGH RISK: >240 MG/DL >200 MG/DL CLASS. FOR PRIMARY LDL CHOL PREVENTION: LDL CHOL-CHILD/ADOLESCENTS* DESIRABLE: <130 MG/DL <110 MG/DL BORDERLINE-HIGH RISK: 130- 159 MG/DL 110-129 MG/DL HIGH RISK: >160 MG/DL >130 MG/DL *CHILDREN AND ADOLESCENTS REPRESENTS INDIVIDUALA AGED 2-19 YEARS EXCLUSIVE. ID Date Data Source [id number] 03/16/2020 09:03:00 AM EDT MEDENT ([facility] Name Value Range Interpretation Code Description Data Daniella rce(s) Supporting Document(s) Glu 103 mg/dL 70-110 [facility] CHRONIC KIDNEY DISEASE STAGING PER NKF: MALE GFR INTERPRETATION: 20-49 YRS: [...] mL/min Normal 80 and above >32 mL/min NormalCLASSIFICATION CHOLESTEROL FOR ADULTS CHILDREN/ADOLESCENTS* DESIRABLE: <200 MG/DL <170 MG/DL BORDER-LINE HIGH RISK: 200-239 MG/DL 170-199 MG/DL HIGH RISK: >240 MG/DL >200 MG/DL CLASS. FOR PRIMARY LDL CHOL PREVENTION: LDL CHOL-CHILD/ADOLESCENTS* DESIRABLE: <130 MG/DL <110 MG/DL BORDERLINE-HIGH RISK: 130- 159 MG/DL 110-129 MG/DL HIGH RISK: >160 MG/DL >130 MG/DL *CHILDREN AND ADOLESCENTS REPRESENTS INDIVIDUALA AGED 2-19 YEARS EXCLUSIVE. BUN 13 mg/dL 8-23 [facility] ([facility] CHRONIC KIDNEY DISEASE STAGING PER NKF: MALE GFR INTERPRETATION: 20-49 YRS: [...] mL/min Normal 80 and above >32 mL/min NormalCLASSIFICATION CHOLESTEROL FOR ADULTS CHILDREN/ADOLESCENTS* DESIRABLE: <200 MG/DL <170 MG/DL BORDER-LINE HIGH RISK: 200-239 MG/DL 170-199 MG/DL HIGH RISK: >240 MG/DL >200 MG/DL CLASS. FOR PRIMARY LDL CHOL PREVENTION: LDL CHOL-CHILD/ADOLESCENTS* DESIRABLE: <130 MG/DL <110 MG/DL BORDERLINE-HIGH RISK: 130- 159 MG/DL 110-129 MG/DL HIGH RISK: >160 MG/DL >130 MG/DL *CHILDREN AND ADOLESCENTS REPRESENTS INDIVIDUALA AGED 2-19 YEARS EXCLUSIVE. Creat 0.8 mg/dL 0.7-1.2 [facility] ([facility] CHRONIC KIDNEY DISEASE STAGING PER NKF: MALE GFR INTERPRETATION: 20-49 YRS: [...] mL/min Normal 80 and above >32 mL/min NormalCLASSIFICATION CHOLESTEROL FOR ADULTS CHILDREN/ADOLESCENTS* DESIRABLE: <200 MG/DL <170 MG/DL BORDER-LINE HIGH RISK: 200-239 MG/DL 170-199 MG/DL HIGH RISK: >240 MG/DL >200 MG/DL CLASS. FOR PRIMARY LDL CHOL PREVENTION: LDL CHOL-CHILD/ADOLESCENTS* DESIRABLE: <130 MG/DL <110 MG/DL BORDERLINE-HIGH RISK: 130- 159 MG/DL 110-129 MG/DL HIGH RISK: >160 MG/DL >130 MG/DL *CHILDREN AND ADOLESCENTS REPRESENTS INDIVIDUALA AGED 2-19 YEARS EXCLUSIVE. BUN/Creatinine Ratio 16.7 CALC MEDENT ([facility] CHRONIC KIDNEY DISEASE STAGING PER NKF: MALE GFR INTERPRETATION: 20-49 YRS: [...] mL/min Normal 80 and above >32 mL/min NormalCLASSIFICATION CHOLESTEROL FOR ADULTS CHILDREN/ADOLESCENTS* DESIRABLE: <200 MG/DL <170 MG/DL BORDER-LINE HIGH RISK: 200-239 MG/DL 170-199 MG/DL HIGH RISK: >240 MG/DL >200 MG/DL CLASS. FOR PRIMARY LDL CHOL PREVENTION: LDL CHOL-CHILD/ADOLESCENTS* DESIRABLE: <130 MG/DL <110 MG/DL BORDERLINE-HIGH RISK: 130- 159 MG/DL 110-129 MG/DL HIGH RISK: >160 MG/DL >130 MG/DL *CHILDREN AND ADOLESCENTS REPRESENTS INDIVIDUALA AGED 2-19 YEARS EXCLUSIVE. Na 137 mmol/L 136-145 MEDENT ([facility] CHRONIC KIDNEY DISEASE STAGING PER NKF: MALE GFR INTERPRETATION: 20-49 YRS: [...] mL/min Normal 80 and above >32 mL/min NormalCLASSIFICATION CHOLESTEROL FOR ADULTS CHILDREN/ADOLESCENTS* DESIRABLE: <200 MG/DL <170 MG/DL BORDER-LINE HIGH RISK: 200-239 MG/DL 170-199 MG/DL HIGH RISK: >240 MG/DL >200 MG/DL CLASS. FOR PRIMARY LDL CHOL PREVENTION: LDL CHOL-CHILD/ADOLESCENTS* DESIRABLE: <130 MG/DL <110 MG/DL BORDERLINE-HIGH RISK: 130- 159 MG/DL 110-129 MG/DL HIGH RISK: >160 MG/DL >130 MG/DL *CHILDREN AND ADOLESCENTS REPRESENTS INDIVIDUALA AGED 2-19 YEARS EXCLUSIVE. CL 100.3 mmol/L 98.0-107.0 MEDENT ([facility] CHRONIC KIDNEY DISEASE STAGING PER NKF: MALE GFR INTERPRETATION: 20-49 YRS: [...] mL/min Normal 80 and above >32 mL/min NormalCLASSIFICATION CHOLESTEROL FOR ADULTS CHILDREN/ADOLESCENTS* DESIRABLE: <200 MG/DL <170 MG/DL BORDER-LINE HIGH RISK: 200-239 MG/DL 170-199 MG/DL HIGH RISK: >240 MG/DL >200 MG/DL CLASS. FOR PRIMARY LDL CHOL PREVENTION: LDL CHOL-CHILD/ADOLESCENTS* DESIRABLE: <130 MG/DL <110 MG/DL BORDERLINE-HIGH RISK: 130- 159 MG/DL 110-129 MG/DL HIGH RISK: >160 MG/DL >130 MG/DL *CHILDREN AND ADOLESCENTS REPRESENTS INDIVIDUALA AGED 2-19 YEARS EXCLUSIVE. K 4.0 mmol/L 3.5-5.1 MEDENT ([facility] CHRONIC KIDNEY DISEASE STAGING PER NKF: MALE GFR INTERPRETATION: 20-49 YRS: [...] mL/min Normal 80 and above >32 mL/min NormalCLASSIFICATION CHOLESTEROL FOR ADULTS CHILDREN/ADOLESCENTS* DESIRABLE: <200 MG/DL <170 MG/DL BORDER-LINE HIGH RISK: 200-239 MG/DL 170-199 MG/DL HIGH RISK: >240 MG/DL >200 MG/DL CLASS. FOR PRIMARY LDL CHOL PREVENTION: LDL CHOL-CHILD/ADOLESCENTS* DESIRABLE: <130 MG/DL <110 MG/DL BORDERLINE-HIGH RISK: 130- 159 MG/DL 110-129 MG/DL HIGH RISK: >160 MG/DL >130 MG/DL *CHILDREN AND ADOLESCENTS REPRESENTS INDIVIDUALA AGED 2-19 YEARS EXCLUSIVE. CA 9.2 mg/dL 8.6-10.2 [facility] ([facility] CHRONIC KIDNEY DISEASE STAGING PER NKF: MALE GFR INTERPRETATION: 20-49 YRS: [...] mL/min Normal 80 and above >32 mL/min NormalCLASSIFICATION CHOLESTEROL FOR ADULTS CHILDREN/ADOLESCENTS* DESIRABLE: <200 MG/DL <170 MG/DL BORDER-LINE HIGH RISK: 200-239 MG/DL 170-199 MG/DL HIGH RISK: >240 MG/DL >200 MG/DL CLASS. FOR PRIMARY LDL CHOL PREVENTION: LDL CHOL-CHILD/ADOLESCENTS* DESIRABLE: <130 MG/DL <110 MG/DL BORDERLINE-HIGH RISK: 130- 159 MG/DL 110-129 MG/DL HIGH RISK: >160 MG/DL >130 MG/DL *CHILDREN AND ADOLESCENTS REPRESENTS INDIVIDUALA AGED 2-19 YEARS EXCLUSIVE. Co2 22.7 mmol/L 22.0-29.0 MEDENT ([facility] CHRONIC KIDNEY DISEASE STAGING PER NKF: MALE GFR INTERPRETATION: 20-49 YRS: [...] mL/min Normal 80 and above >32 mL/min NormalCLASSIFICATION CHOLESTEROL FOR ADULTS CHILDREN/ADOLESCENTS* DESIRABLE: <200 MG/DL <170 MG/DL BORDER-LINE HIGH RISK: 200-239 MG/DL 170-199 MG/DL HIGH RISK: >240 MG/DL >200 MG/DL CLASS. FOR PRIMARY LDL CHOL PREVENTION: LDL CHOL-CHILD/ADOLESCENTS* DESIRABLE: <130 MG/DL <110 MG/DL BORDERLINE-HIGH RISK: 130- 159 MG/DL 110-129 MG/DL HIGH RISK: >160 MG/DL >130 MG/DL *CHILDREN AND ADOLESCENTS REPRESENTS INDIVIDUALA AGED 2-19 YEARS EXCLUSIVE. TP 6.7 g/dL 6.6-8.7 MEDENT ([facility] CHRONIC KIDNEY DISEASE STAGING PER NKF: MALE GFR INTERPRETATION: 20-49 YRS: [...] mL/min Normal 80 and above >32 mL/min NormalCLASSIFICATION CHOLESTEROL FOR ADULTS CHILDREN/ADOLESCENTS* DESIRABLE: <200 MG/DL <170 MG/DL BORDER-LINE HIGH RISK: 200-239 MG/DL 170-199 MG/DL HIGH RISK: >240 MG/DL >200 MG/DL CLASS. FOR PRIMARY LDL CHOL PREVENTION: LDL CHOL-CHILD/ADOLESCENTS* DESIRABLE: <130 MG/DL <110 MG/DL BORDERLINE-HIGH RISK: 130- 159 MG/DL 110-129 MG/DL HIGH RISK: >160 MG/DL >130 MG/DL *CHILDREN AND ADOLESCENTS REPRESENTS INDIVIDUALA AGED 2-19 YEARS EXCLUSIVE. Alb 4.4 g/dL 3.5-5.2 MEDENT ([facility] CHRONIC KIDNEY DISEASE STAGING PER NKF: MALE GFR INTERPRETATION: 20-49 YRS: [...] mL/min Normal 80 and above >32 mL/min NormalCLASSIFICATION CHOLESTEROL FOR ADULTS CHILDREN/ADOLESCENTS* DESIRABLE: <200 MG/DL <170 MG/DL BORDER-LINE HIGH RISK: 200-239 MG/DL 170-199 MG/DL HIGH RISK: >240 MG/DL >200 MG/DL CLASS. FOR PRIMARY LDL CHOL PREVENTION: LDL CHOL-CHILD/ADOLESCENTS* DESIRABLE: <130 MG/DL <110 MG/DL BORDERLINE-HIGH RISK: 130- 159 MG/DL 110-129 MG/DL HIGH RISK: >160 MG/DL >130 MG/DL *CHILDREN AND ADOLESCENTS REPRESENTS INDIVIDUALA AGED 2-19 YEARS EXCLUSIVE. A/G Ratio 2.0 CALC MEDENT ([facility] CHRONIC KIDNEY DISEASE STAGING PER NKF: MALE GFR INTERPRETATION: 20-49 YRS: [...] mL/min Normal 80 and above >32 mL/min NormalCLASSIFICATION CHOLESTEROL FOR ADULTS CHILDREN/ADOLESCENTS* DESIRABLE: <200 MG/DL <170 MG/DL BORDER-LINE HIGH RISK: 200-239 MG/DL 170-199 MG/DL HIGH RISK: >240 MG/DL >200 MG/DL CLASS. FOR PRIMARY LDL CHOL PREVENTION: LDL CHOL-CHILD/ADOLESCENTS* DESIRABLE: <130 MG/DL <110 MG/DL BORDERLINE-HIGH RISK: 130- 159 MG/DL 110-129 MG/DL HIGH RISK: >160 MG/DL >130 MG/DL *CHILDREN AND ADOLESCENTS REPRESENTS INDIVIDUALA AGED 2-19 YEARS EXCLUSIVE. Globulin 2.2 CALC MEDENT ([facility] CHRONIC KIDNEY DISEASE STAGING PER NKF: MALE GFR INTERPRETATION: 20-49 YRS: [...] mL/min Normal 80 and above >32 mL/min NormalCLASSIFICATION CHOLESTEROL FOR ADULTS CHILDREN/ADOLESCENTS* DESIRABLE: <200 MG/DL <170 MG/DL BORDER-LINE HIGH RISK: 200-239 MG/DL 170-199 MG/DL HIGH RISK: >240 MG/DL >200 MG/DL CLASS. FOR PRIMARY LDL CHOL PREVENTION: LDL CHOL-CHILD/ADOLESCENTS* DESIRABLE: <130 MG/DL <110 MG/DL BORDERLINE-HIGH RISK: 130- 159 MG/DL 110-129 MG/DL HIGH RISK: >160 MG/DL >130 MG/DL *CHILDREN AND ADOLESCENTS REPRESENTS INDIVIDUALA AGED 2-19 YEARS EXCLUSIVE. Alp 57.7 U/L 40-129 MEDENT ([facility] CHRONIC KIDNEY DISEASE STAGING PER NKF: MALE GFR INTERPRETATION: 20-49 YRS: [...] mL/min Normal 80 and above >32 mL/min NormalCLASSIFICATION CHOLESTEROL FOR ADULTS CHILDREN/ADOLESCENTS* DESIRABLE: <200 MG/DL <170 MG/DL BORDER-LINE HIGH RISK: 200-239 MG/DL 170-199 MG/DL HIGH RISK: >240 MG/DL >200 MG/DL CLASS. FOR PRIMARY LDL CHOL PREVENTION: LDL CHOL-CHILD/ADOLESCENTS* DESIRABLE: <130 MG/DL <110 MG/DL BORDERLINE-HIGH RISK: 130- 159 MG/DL 110-129 MG/DL HIGH RISK: >160 MG/DL >130 MG/DL *CHILDREN AND ADOLESCENTS REPRESENTS INDIVIDUALA AGED 2-19 YEARS EXCLUSIVE. Alt (SGPT) 102 U/L 0-41 Above high normal MEDENT ([facility] CHRONIC KIDNEY DISEASE STAGING PER NKF: MALE GFR INTERPRETATION: 20-49 YRS: [...] mL/min Normal 80 and above >32 mL/min NormalCLASSIFICATION CHOLESTEROL FOR ADULTS CHILDREN/ADOLESCENTS* DESIRABLE: <200 MG/DL <170 MG/DL BORDER-LINE HIGH RISK: 200-239 MG/DL 170-199 MG/DL HIGH RISK: >240 MG/DL >200 MG/DL CLASS. FOR PRIMARY LDL CHOL PREVENTION: LDL CHOL-CHILD/ADOLESCENTS* DESIRABLE: <130 MG/DL <110 MG/DL BORDERLINE-HIGH RISK: 130- 159 MG/DL 110-129 MG/DL HIGH RISK: >160 MG/DL >130 MG/DL *CHILDREN AND ADOLESCENTS REPRESENTS INDIVIDUALA AGED 2-19 YEARS EXCLUSIVE. Ast (Sgot) 91 U/L 0-40 Above high normal MEDENT ([facility] CHRONIC KIDNEY DISEASE STAGING PER NKF: MALE GFR INTERPRETATION: 20-49 YRS: [...] mL/min Normal 80 and above >32 mL/min NormalCLASSIFICATION CHOLESTEROL FOR ADULTS CHILDREN/ADOLESCENTS* DESIRABLE: <200 MG/DL <170 MG/DL BORDER-LINE HIGH RISK: 200-239 MG/DL 170-199 MG/DL HIGH RISK: >240 MG/DL >200 MG/DL CLASS. FOR PRIMARY LDL CHOL PREVENTION: LDL CHOL-CHILD/ADOLESCENTS* DESIRABLE: <130 MG/DL <110 MG/DL BORDERLINE-HIGH RISK: 130- 159 MG/DL 110-129 MG/DL HIGH RISK: >160 MG/DL >130 MG/DL *CHILDREN AND ADOLESCENTS REPRESENTS INDIVIDUALA AGED 2-19 YEARS EXCLUSIVE. Tbili 0.55 mg/dL 0.0-1.2 MEDENT ([facility] CHRONIC KIDNEY DISEASE STAGING PER NKF: MALE GFR INTERPRETATION: 20-49 YRS: [...] mL/min Normal 80 and above >32 mL/min NormalCLASSIFICATION CHOLESTEROL FOR ADULTS CHILDREN/ADOLESCENTS* DESIRABLE: <200 MG/DL <170 MG/DL BORDER-LINE HIGH RISK: 200-239 MG/DL 170-199 MG/DL HIGH RISK: >240 MG/DL >200 MG/DL CLASS. FOR PRIMARY LDL CHOL PREVENTION: LDL CHOL-CHILD/ADOLESCENTS* DESIRABLE: <130 MG/DL <110 MG/DL BORDERLINE-HIGH RISK: 130- 159 MG/DL 110-129 MG/DL HIGH RISK: >160 MG/DL >130 MG/DL *CHILDREN AND ADOLESCENTS REPRESENTS INDIVIDUALA AGED 2-19 YEARS EXCLUSIVE. Osmolality-Calculated 273.7 CALC MED ENT ([facility] CHRONIC KIDNEY DISEASE STAGING PER NKF: MALE GFR INTERPRETATION: 20-49 YRS: [...] mL/min Normal 80 and above >32 mL/min NormalCLASSIFICATION CHOLESTEROL FOR ADULTS CHILDREN/ADOLESCENTS* DESIRABLE: <200 MG/DL <170 MG/DL BORDER-LINE HIGH RISK: 200-239 MG/DL 170-199 MG/DL HIGH RISK: >240 MG/DL >200 MG/DL CLASS. FOR PRIMARY LDL CHOL PREVENTION: LDL CHOL-CHILD/ADOLESCENTS* DESIRABLE: <130 MG/DL <110 MG/DL BORDERLINE-HIGH RISK: 130- 159 MG/DL 110-129 MG/DL HIGH RISK: >160 MG/DL >130 MG/DL *CHILDREN AND ADOLESCENTS REPRESENTS INDIVIDUALA AGED 2-19 YEARS EXCLUSIVE. eGFR 107 # MEDENT ( [facility] CHRONIC KIDNEY DISEASE STAGING PER NKF: MALE GFR INTERPRETATION: 20-49 YRS: [...] mL/min Normal 80 and above >32 mL/min NormalCLASSIFICATION CHOLESTEROL FOR ADULTS CHILDREN/ADOLESCENTS* DESIRABLE: <200 MG/DL <170 MG/DL BORDER-LINE HIGH RISK: 200-239 MG/DL 170-199 MG/DL HIGH RISK: >240 MG/DL >200 MG/DL CLASS. FOR PRIMARY LDL CHOL PREVENTION: LDL CHOL-CHILD/ADOLESCENTS* DESIRABLE: <130 MG/DL <110 MG/DL BORDERLINE-HIGH RISK: 130- 159 MG/DL 110-129 MG/DL HIGH RISK: >160 MG/DL >130 MG/DL *CHILDREN AND ADOLESCENTS REPRESENTS INDIVIDUALA AGED 2-19 YEARS EXCLUSIVE. Anion Gap 18 mmol/L MEDENT ([facility] CHRONIC KIDNEY DISEASE STAGING PER NKF: MALE GFR INTERPRETATION: 20-49 YRS: [...] mL/min Normal 80 and above >32 mL/min NormalCLASSIFICATION CHOLESTEROL FOR ADULTS CHILDREN/ADOLESCENTS* DESIRABLE: <200 MG/DL <170 MG/DL BORDER-LINE HIGH RISK: 200-239 MG/DL 170-199 MG/DL HIGH RISK: >240 MG/DL >200 MG/DL CLASS. FOR PRIMARY LDL CHOL PREVENTION: LDL CHOL-CHILD/ADOLESCENTS* DESIRABLE: <130 MG/DL <110 MG/DL BORDERLINE-HIGH RISK: 130- 159 MG/DL 110-129 MG/DL HIGH RISK: >160 MG/DL >130 MG/DL *CHILDREN AND ADOLESCENTS REPRESENTS INDIVIDUALA AGED 2-19 YEARS EXCLUSIVE. eGFR Non-Afr. Swazi 92 # MEDFRANK ([facility] CHRONIC KIDNEY DISEASE STAGING PER NKF: MALE GFR INTERPRETATION: 20-49 YRS: [...] mL/min Normal 80 and above >32 mL/min NormalCLASSIFICATION CHOLESTEROL FOR ADULTS CHILDREN/ADOLESCENTS* DESIRABLE: <200 MG/DL <170 MG/DL BORDER-LINE HIGH RISK: 200-239 MG/DL 170-199 MG/DL HIGH RISK: >240 MG/DL >200 MG/DL CLASS. FOR PRIMARY LDL CHOL PREVENTION: LDL CHOL-CHILD/ADOLESCENTS* DESIRABLE: <130 MG/DL <110 MG/DL BORDERLINE-HIGH RISK: 130- 159 MG/DL 110-129 MG/DL HIGH RISK: >160 MG/DL >130 MG/DL *CHILDREN AND ADOLESCENTS REPRESENTS INDIVIDUALA AGED 2-19 YEARS EXCLUSIVE. ID Date Data Source Basic Metabolic Profile (BMP) 10/26/2019 12:00:00 AM EST eCW 1 ([facility]) Name Value Range Interpretation Code Description Data Daniella rce(s) Supporting Document(s) 99 70-100 GLUCOSE, FASTING eCW1 ([facility]) 11 7-18 BLOOD UREA NITROGEN eCW1 ([facility]) 0.77 0.70-1.30 CREATININE FOR GFR eCW1 ([facility]) 4.1 3.5-5.1 POTASSIUM SERUM eCW1 ([facility]) 103 98-107 CHLORIDE LEVEL eCW1 ([facility]) 137 136-145 SODIUM LEVEL eCW1 ([facility]) > 60.0 >49 GLOMERULAR FILTRATION RATE eCW 1 ([facility]) 8.7 8.8-10.2 CALCIUM LEVEL eCW1 ([facility]) 28 21-32 CARBON DIOXIDE LEVEL eCW1 ([facility]) ID Date Data Source PSA MONITOR (HX PROSTATE CA/ABNORMAL PSA) 10/14/2019 12:00:0 0 AM EST eCW1 ([facility]) Name Value Range Interpretation Code Description Data Daniella rce(s) Supporting Document(s) 2.91 < 4.00 PROSTATIC SPECIFIC AG MON ITOR eCW1 ([facility]) ID Date Data Source [id number] 09/16/2019 03:43:00 PM EST MEDENT ([facility] Name Value Range Interpretation Code Description Data Daniella rce(s) Supporting Document(s) Urate [Mass/volume] in Serum or Plasma 6.3 mg/dL 3.4-7.0 MEDENT ([facility] CHRONIC KIDNEY DISEASE STAGING PER NKF: MALE GFR INTERPRETATION: 20-49 YRS: [...] Normal 80 and above >32 mL/min Normal ID Date Data Source [id number] 09/16/2019 03:43:00 PM EST MEDENT ([facility] Name Value Range Interpretation Code Description Data Daniella rce(s) Supporting Document(s) Glu 177 mg/dL 70-110 Above high normal MEDENT ([facility] CHRONIC KIDNEY DISEASE STAGING PER NKF: MALE GFR INTERPRETATION: 20-49 YRS: [...] Normal 80 and above >32 mL/min Normal BUN 10 mg/dL 8-23 MEDENT ([facility] CHRONIC KIDNEY DISEASE STAGING PER NKF: MALE GFR INTERPRETATION: 20-49 YRS: [...] Normal 80 and above >32 mL/min Normal BUN/Creatinine Ratio 12.1 CALC MEDENT ([facility] CHRONIC KIDNEY DISEASE STAGING PER NKF: MALE GFR INTERPRETATION: 20-49 YRS: [...] Normal 80 and above >32 mL/min Normal Creat 0.8 mg/dL 0.7-1.2 MEDENT ([facility] CHRONIC KIDNEY DISEASE STAGING PER NKF: MALE GFR INTERPRETATION: 20-49 YRS: [...] Normal 80 and above >32 mL/min Normal Na 138 mmol/L 136-145 MEDENT ([facility] CHRONIC KIDNEY DISEASE STAGING PER NKF: MALE GFR INTERPRETATION: 20-49 YRS: [...] Normal 80 and above >32 mL/min Normal Co2 23.6 mmol/L 22.0-29.0 MEDENT [facility] CHRONIC KIDNEY DISEASE STAGING PER NKF: MALE GFR INTERPRETATION: 20-49 YRS: [...] Normal 80 and above >32 mL/min Normal CL 98.3 mmol/L 98.0-107.0 [facility] CHRONIC KIDNEY DISEASE STAGING PER NKF: MALE GFR INTERPRETATION: 20-49 YRS: [...] Normal 80 and above >32 mL/min Normal K 3.4 mmol/L 3.5-5.1 Below low normal MEDENT ( [facility] CHRONIC KIDNEY DISEASE STAGING PER NKF: MALE GFR INTERPRETATION: 20-49 YRS: [...] Normal 80 and above >32 mL/min Normal TP 7.0 g/dL 6.6-8.7 MEDENT ([facility] CHRONIC KIDNEY DISEASE STAGING PER NKF: MALE GFR INTERPRETATION: 20-49 YRS: [...] Normal 80 and above >32 mL/min Normal CA 9.6 mg/dL 8.6-10.2 MEDENT ([facility] CHRONIC KIDNEY DISEASE STAGING PER NKF: MALE GFR INTERPRETATION: 20-49 YRS: [...] Normal 80 and above >32 mL/min Normal Alb 4.6 g/dL 3.5-5.2 MEDENT ([facility] CHRONIC KIDNEY DISEASE STAGING PER NKF: MALE GFR INTERPRETATION: 20-49 YRS: [...] Normal 80 and above >32 mL/min Normal A/G Ratio 1.9 CALC MEDENT ([facility] CHRONIC KIDNEY DISEASE STAGING PER NKF: MALE GFR INTERPRETATION: 20-49 YRS: [...] Normal 80 and above >32 mL/min Normal Globulin 2.4 CALC MEDENT ([facility] CHRONIC KIDNEY DISEASE STAGING PER NKF: MALE GFR INTERPRETATION: 20-49 YRS: [...] Normal 80 and above >32 mL/min Normal Ast (Sgot) 53 U/L 0-40 Above high normal MEDENT ([facility] CHRONIC KIDNEY DISEASE STAGING PER NKF: MALE GFR INTERPRETATION: 20-49 YRS: [...] Normal 80 and above >32 mL/min Normal Alp 64.4 U/L 40-129 MEDENT ([facility] CHRONIC KIDNEY DISEASE STAGING PER NKF: MALE GFR INTERPRETATION: 20-49 YRS: [...] Normal 80 and above >32 mL/min Normal Alt (SGPT) 51 U/L 0-41 Above high normal MEDENT ([facility] CHRONIC KIDNEY DISEASE STAGING PER NKF: MALE GFR INTERPRETATION: 20-49 YRS: [...] Normal 80 and above >32 mL/min Normal Osmolality-Calculated 279.6 CALC MED ENT ([facility] CHRONIC KIDNEY DISEASE STAGING PER NKF: MALE GFR INTERPRETATION: 20-49 YRS: [...] Normal 80 and above >32 mL/min Normal Anion Gap 20 mmol/L MEDFRANK ([facility] CHRONIC KIDNEY DISEASE STAGING PER NKF: MALE GFR INTERPRETATION: 20-49 YRS: [...] Normal 80 and above >32 mL/min Normal Tbili 0.42 mg/dL 0.0-1.2 DULCE ([facility] CHRONIC KIDNEY DISEASE STAGING PER NKF: MALE GFR INTERPRETATION: 20-49 YRS: [...] Normal 80 and above >32 mL/min Normal eGFR 108 # DULCE ( [facility] CHRONIC KIDNEY DISEASE STAGING PER NKF: MALE GFR INTERPRETATION: 20-49 YRS: [...] Normal 80 and above >32 mL/min Normal eGFR Non-Afr. Swazi 93 # MEDFRANK ([facility] CHRONIC KIDNEY DISEASE STAGING PER NKF: MALE GFR INTERPRETATION: 20-49 YRS: [...] Normal 80 and above >32 mL/min Normal Procedure Vital Signs ID Date Data Source UNK Name Value Range Interpretation Code Description Data Source(s) Oxygen saturation in Arterial blood by Pulse oximetry 97 % 97 % MEDENT ([facility] Body mass index (BMI) [Ratio] 36.5 kg/m2 36.5 k g/m2 MEDENT ([facility] Gage body weight 124 [lb_av] 124 [lb_av] MEDEN T ([facility] Body weight 206.00 [lb_av] 206.00 [lb_av] MEDEN T ([facility] Body height 63 [in_i] 63 [in_i] MEDENT ([facility] 5'3" Respiratory rate 12 /min 12 /min MEDENT ( [facility] Heart rate 70 /min 70 /min MEDENT ([facility] Body temperature 97.5 [degF] 97.5 [degF] MEDENT ([facility] Diastolic blood pressure 70 mm[Hg] 70 mm[Hg] MEDENT ([facility] Systolic blood pressure 120 mm[Hg] 120 mm[Hg] M EDENT ([facility] Oxygen saturation in Arterial blood by Pulse oximetry 96 % 96 % MEDENT ([facility] Body mass index (BMI) [Ratio] 34.5 kg/m2 34.5 k g/m2 MEDENT ([facility] Gage body weight 124 [lb_av] 124 [lb_av] MEDEN T ([facility] Body weight 195.00 [lb_av] 195.00 [lb_av] MEDEN T ([facility] Body height 63 [in_i] 63 [in_i] MEDENT ([facility] 5'3" Respiratory rate 18 /min 18 /min MEDENT ( [facility] Heart rate 86 /min 86 /min MEDENT ([facility] Body temperature 97.5 [degF] 97.5 [degF] MEDENT ([facility] Diastolic blood pressure 70 mm[Hg] 70 mm[Hg] MEDENT ([facility] Systolic blood pressure 116 mm[Hg] 116 mm[Hg] M EDENT ([facility] Diastolic blood pressure mm[Hg] eCW1 ([facility]) Systolic blood pressure 124 mm[Hg] 124 mm[Hg] e CW1 ([facility]) Body temperature 97.5 [degF] 97.5 [degF] eCW1 ( [facility]) Respiratory rate 17 /min 17 /min eCW1 ([facility]) Heart rate 81 /min 81 /min eCW1 ([facility]) Body mass index (BMI) [Ratio] 34.72 kg/m2 34.72 kg/m2 W1 ([facility]) Body height 63 [in_us] 63 [in_us] eCW1 ([facility]) Body weight Measured 196 [lb_av] 196 [lb_av] eC W1 ([facility]) Diastolic blood pressure mm[Hg] eCW1 ([facility]) Systolic blood pressure 118 mm[Hg] 118 mm[Hg] e CW1 ([facility]) Body temperature 97.9 [degF] 97.9 [degF] eCW1 ( [facility]) Respiratory rate 17 /min 17 /min eCW1 ([facility]) Heart rate 80 /min 80 /min eCW1 ([facility]) Body mass index (BMI) [Ratio] 35.07 kg/m2 35.07 kg/m2 W1 ([facility]) Body height 63 [in_us] 63 [in_us] eCW1 ([facility]) Body weight Measured 198 [lb_av] 198 [lb_av] eC W1 ([facility]) Diastolic blood pressure mm[Hg] eCW1 ([facility]) Systolic blood pressure 118 mm[Hg] 118 mm[Hg] e CW1 ([facility]) Body temperature 97.8 [degF] 97.8 [degF] eCW1 ( [facility]) Respiratory rate 17 /min 17 /min eCW1 ([facility]) Heart rate 90 /min 90 /min eCW1 ([facility]) Body mass index (BMI) [Ratio] 35.25 kg/m2 35.25 kg/m2 eCW1 ([facility]) Body height 63 [in_us] 63 [in_us] eCW1 ([facility]) Body weight Measured 199 [lb_av] 199 [lb_av] eC W1 ([facility]) Body mass index (BMI) [Ratio] 35.4 kg/m2 35.4 k g/m2 MEDENT ([facility], [facility]) Body height 63 [in_i] 63 [in_i] MEDENT ([facility]) 5'3" Body weight 200.00 [lb_av] 200.00 [lb_av] MEDEN T ([facility], [facility]) Body temperature 98.7 [degF] 98.7 [degF] MEDENT ([facility], [facility]) Oxygen saturation in Arterial blood by Pulse oximetry 97 % 97 % MEDENT ([facility], [facility]) Respiratory rate 16 /min 16 /min MEDENT ( [facility], [facility]) Heart rate 92 /min 92 /min MEDENT ([facility], [facility]) Diastolic blood pressure 72 mm[Hg] 72 mm[Hg] MEDENT ([facility], [facility]) Systolic blood pressure 110 mm[Hg] 110 mm[Hg] M EDENT ([facility], [facility]) Body weight 201.00 [lb_av] 201.00 [lb_av] TO T ([facility] Respiratory rate 12 /min 12 /min DULCE ( [facility] Heart rate 72 /min 72 /min DULCE ([facility] Diastolic blood pressure 84 mm[Hg] 84 mm[Hg] DULCE ([facility] Systolic blood pressure 132 mm[Hg] 132 mm[Hg] Joya BEASLEY ([facility]
[2020-10-12] MEDS ORDERED: propofoL 200 MG/20 ML VIAL As Ordered ONE ×2 (07:11→07:56)
[2020-10-12] MEDS ORDERED: LIDOCAINE 2% 100MG/5ML SDV (FOR ANES.) As Ordered ONE (07:11)
[2020-10-12] MEDS ORDERED: NS 1,000 ML IV ONE (08:00)
--- NOTE | 2020-10-12 08:01 | ROOR ---
Patient Name: Benigno Gould Procedure Date: 10/12/2020 7:33 AM Date of : 1955 Age: 65 Room: [facility] Gender: Male Note Status: Finalized Procedure: Colonoscopy Indications: High risk colon cancer surveillance: Personal history of colonic polyps, Last colonoscopy: May 2016 Providers: Gilberto CORTEZ MD Referring MD: JEFF WINTER MD Requesting Provider: Medicines: Monitored Anesthesia Care Complications: No immediate complications. Procedure: Pre-Anesthesia Assessment: - The heart rate, respiratory rate, oxygen saturations, blood pressure, adequacy of pulmonary ventilation, and response to care were monitored throughout the procedure. The Colonoscope was introduced through the anus and advanced to the cecum, identified by appendiceal orifice and ileocecal valve. The colonoscopy was performed without difficulty. The patient tolerated the procedure well. The quality of the bowel preparation was good. Findings: The perianal and digital rectal examinations were normal. Five sessile polyps were found in the rectum, sigmoid colon, ascending colon and cecum. The polyps were diminutive in size. These polyps were removed with a cold snare. Resection and retrieval were complete. Mild sigmoid diverticulosis and small internal hemorrhoids. The exam was otherwise without abnormality on direct and retroflexion views. Impression: - Five diminutive polyps in the rectum, in the sigmoid colon, in the ascending colon and in the cecum, removed with a cold snare. Resected and retrieved. - Mild sigmoid diverticulosis and small internal hemorrhoids. - The examination was otherwise normal on direct and retroflexion views. Recommendation: - Repeat colonoscopy in 5 years for surveillance. Procedure Code(s): --- Professional --- 65573, Colonoscopy, flexible; with removal of tumor(s), polyp(s), or other lesion(s) by snare technique Diagnosis Code(s): --- Professional --- Z86.010, Personal history of colonic polyps K62.1, Rectal polyp K63.5, Polyp of colon CPT copyright 2019 [employer]. All rights reserved. The codes documented in this report are preliminary and upon fryline attendant review may be revised to meet current compliance requirements. Gilberto Cortez MD Gilberto CORTEZ MD 10/12/2020 8:01:00 AM Electronically signed by Gilberto CORTEZ MD Number of Addenda: 0 Note Initiated On: 10/12/2020 7:33 AM Estimated Blood Loss: Estimated blood loss: none.
[2020-10-12 08:33] VITALS: BP 139/72
== END 2020-10-12 08:35 | disposition home or self-care (01) ==
LOC: M OPP 06:25
PROVIDERS: ATTEND Internal Medicine Gastroenterology
DX: Z12.11 Encounter for screening for malignant neoplasm of colon (principal); Z86.010 Personal history of colon polyps; K63.5 Polyp of colon; K57.30 Diverticulosis of large intestine without perforation or abscess without bleeding; K64.8 Other hemorrhoids; I10 Essential (primary) hypertension; M10.9 Gout, unspecified; M19.90 Unspecified osteoarthritis, unspecified site; F32.9 Major depressive disorder, single episode, unspecified; Z85.46 Personal history of malignant neoplasm of prostate; Z79.899 Other long term (current) drug therapy

== ENCOUNTER → 2020-10-26 | Outpatient (CLI) | payer MEDICARE ==
[2020-10-26 15:52] LABS: HEMOGLOBIN A1c 5.6 %
== END ==
LOC: M PLALAB 13:56
PROVIDERS: ATTEND Internal Medicine
DX: R73.01 Impaired fasting glucose (principal)

== ENCOUNTER → 2020-12-18 | Outpatient (CLI) | payer MEDICARE ==
[~2020-12-18] MED LIST changes: +ISOVUE-300 61% 50ML VIAL As Ordered ONE; +LIDOCAINE 1% MDV 20ML VIAL As Ordered ONE; +TRIAMCINOLONE ACETONIDE SUSP 40 MG/ML VIAL (J3301) As Ordered ONE
--- NOTE | 2020-12-18 18:14 | REP ---
INDICATION: STEROID INJ R HIP PT HAVING SURGERY. COMPARISON: None. TECHNIQUE: The procedure was performed under the direct supervision of Dr. Nelson. The benefits and risks including but not limited to pain infection and bleeding and anaphylaxis were explained to the patient and informed consent was obtained. The right femoral neck was localized using fluoroscopic guidance. The skin was prepped and draped in a sterile fashion. 1% lidocaine was used as a local anesthetic. Using fluoroscopic guidance a 22-gauge spinal needle was inserted and advanced to the femoral neck. 0.5 ml of Isovue-300 was injected to verify placement. 6 ml of a solution containing 5 ml of 1% Xylocaine and 1 ml of Kenalog 40 mg was injected. The needle was then removed. The patient tolerated the procedure well and there were no immediate complications. Less than 6 seconds of fluoro time was utilized for this procedure. FINDINGS: None IMPRESSION: Fluoro guidance for right hip injection. <Electronically signed by Zaki Alonzo > 12/18/20 [id number] <Electronically signed by Idris Nelson > 12/18/20 [id number]
== END ==
LOC: M RADPRO 12:09
PROVIDERS: ATTEND Orthopaedic Surgery
DX: M16.11 Unilateral primary osteoarthritis, right hip (principal)
CPT/HCPCS: 20610; 77002; J3301; Q9967

== ENCOUNTER → 2021-04-12 | Outpatient (CLI) | payer MEDICARE ==
[~2021-04-12] MED LIST changes: -ISOVUE-300 61% 50ML VIAL As Ordered ONE; -LIDOCAINE 1% MDV 20ML VIAL As Ordered ONE; -TRIAMCINOLONE ACETONIDE SUSP 40 MG/ML VIAL (J3301) As Ordered ONE
== END ==
LOC: M PLALAB 15:02
PROVIDERS: ATTEND Urology
DX: C61 Malignant neoplasm of prostate (principal)

== ENCOUNTER → 2021-04-22 | Outpatient (CLI) | payer MEDICARE ==
--- NOTE | 2021-04-22 17:26 | REP ---
INDICATION: UNILATERAL PRIMARY OSTEOARTHRITIS, RIGHT HIP. COMPARISON: None. FINDINGS: The superior mediastinal structures are midline. The cardiac silhouette is unremarkable in size, shape, and position. The diaphragmatic surfaces of the lungs are regular, and the costophrenic angles are clear. The pulmonary medina are clear. The imaged osseous structures are intact. IMPRESSION: There is no acute cardiopulmonary disease. <Electronically signed by Colton Nguyen > 04/22/21 [id number]
== END ==
LOC: M RAD 16:21
PROVIDERS: ATTEND Orthopaedic Surgery
DX: M16.11 Unilateral primary osteoarthritis, right hip (principal)

== ENCOUNTER → 2021-07-03 | Outpatient (CLI) | payer MEDICARE | LOC: M PLALAB 13:14 | PROVIDERS: ATTEND Urology | DX: C61 Malignant neoplasm of prostate (principal) ==

== ENCOUNTER → 2021-10-29 | Outpatient (CLI) | payer MEDICARE ==
[~2021-10-29] MED LIST changes: -AMLO10CA22 PO; +AMLO10CA30 PO
== END ==
LOC: M PLALAB 11:49
PROVIDERS: ATTEND Urology
DX: C61 Malignant neoplasm of prostate (principal)

== ENCOUNTER → 2021-12-27 | Outpatient (CLI) | payer MEDICARE | LOC: M PLALAB 11:25 | PROVIDERS: ATTEND Urology | DX: C61 Malignant neoplasm of prostate (principal) ==

== ENCOUNTER → 2022-04-09 | Outpatient (CLI) | payer MEDICARE | LOC: M PLALAB 14:25 | PROVIDERS: ATTEND Urology | DX: C61 Malignant neoplasm of prostate (principal) ==

== ENCOUNTER → 2022-07-04 | Outpatient (CLI) | payer MEDICARE | LOC: M PLALAB 09:45 | PROVIDERS: ATTEND Urology | DX: C61 Malignant neoplasm of prostate (principal) ==

== ENCOUNTER → 2023-01-22 | Outpatient (CLI) | payer MEDICARE | LOC: M PLALAB 12:30 | PROVIDERS: ATTEND Urology | DX: C61 Malignant neoplasm of prostate (principal) ==

== ENCOUNTER → 2023-02-02 | Outpatient (CLI) | payer MEDICARE ==
[2023-02-02 19:34] LABS: HEMATOCRIT 37.7 % (42.0-52.0); HEMOGLOBIN 12.8 g/dl (13.5-17.5); MEAN CORPUSCULAR HEMOGLOBIN 32.3 pg (27.0-33.0); MEAN CORPUSCULAR VOLUME 95.2 fl (80.0-96.0); PLATELET COUNT, AUTOMATED 253 10^3/uL (150-450); RED BLOOD COUNT 3.96 10^6/uL (4.30-6.10); WHITE BLOOD COUNT 9.5 10^3/uL (4.0-10.0)
[2023-02-02 19:55] LABS: ALBUMIN 3.7 G/DL (3.2-5.2); ALKALINE PHOSPHATASE 107 U/L (46-116); ALT/SGPT 109 U/L (7.0-40); AST/SGOT 119 U/L (<34); BILIRUBIN,TOTAL 0.2 MG/DL (0.3-1.2); BLOOD UREA NITROGEN 16 MG/DL (9-23); CALCIUM LEVEL 8.7 MG/DL (8.3-10.6); CARBON DIOXIDE LEVEL 26 MMOL/L (20-31); CHLORIDE LEVEL 107 MMOL/L (98-107); CREATININE FOR GFR 0.77 MG/DL (0.70-1.30); GLOMERULAR FILTRATION RATE > 60.0 (>49); GLUCOSE, FASTING 114 MG/DL (74-106); POTASSIUM SERUM 4.3 MMOL/L (3.5-5.1); SODIUM LEVEL 141 MMOL/L (136-145); TOTAL PROTEIN 6.6 G/DL (5.7-8.2)
== END ==
LOC: M WUC 15:28
PROVIDERS: ATTEND Internal Medicine
DX: M51.34 Other intervertebral disc degeneration, thoracic region (principal); R60.9 Edema, unspecified

== ENCOUNTER → 2023-07-08 | Outpatient (REF) | payer MEDICARE | LOC: M WUC 11:45 | PROVIDERS: ATTEND Urology | DX: C61 Malignant neoplasm of prostate (principal) ==

== ENCOUNTER → 2024-01-12 | Outpatient (REF) | payer MEDICARE | LOC: M LABDRAWP 12:48 | PROVIDERS: ATTEND Urology | DX: Z85.46 Personal history of malignant neoplasm of prostate (principal) ==

== ENCOUNTER → 2024-01-15 | Outpatient (CLI) | payer MEDICARE | LOC: M RAD 08:53 | PROVIDERS: ATTEND Internal Medicine | DX: K76.0 Fatty (change of) liver, not elsewhere classified (principal) ==

== ENCOUNTER → 2024-03-11 | Outpatient (CLI) | payer MEDICARE ==
[~2024-03-11] MED LIST changes: +ISOVUE-300 61% 100ML VIAL As Ordered ONE; +LIDOCAINE 1% MDV 20ML VIAL As Ordered ONE; +TRIAMCINOLONE ACETONIDE SUSP 40MG/ML 1ML VIAL As Ordered ONE
== END ==
LOC: M RAD 12:17
PROVIDERS: ATTEND Orthopaedic Surgery
DX: M16.12 Unilateral primary osteoarthritis, left hip (principal)
CPT/HCPCS: 20610; 77002; J3301; Q9967

== ENCOUNTER 2024-04-04 07:33 | Day surgery (SDC) | payer MEDICARE ==
[~2024-04-04] VITALS: Ht 162.6 cm; Wt 98.9 kg
[~2024-04-04 07:33] MED LIST changes: +ALLO10TA PO; -ISOVUE-300 61% 100ML VIAL As Ordered ONE; +LEXA1TAB PO; -LIDOCAINE 1% MDV 20ML VIAL As Ordered ONE; +NS 1,000 ML IV ONE; -TRIAMCINOLONE ACETONIDE SUSP 40MG/ML 1ML VIAL As Ordered ONE
[2024-04-04] MEDS ORDERED: propofoL 500 MG/50 ML VIAL As Ordered ONE (08:36)
[2024-04-04 08:57] VITALS: TEMP 98.1
[2024-04-04 09:19] VITALS: BP 114/64; O2SAT 95
== END 2024-04-04 09:24 | disposition home or self-care (01) ==
LOC: M OPP 07:33
PROVIDERS: ATTEND Internal Medicine Gastroenterology
DX: Z86.010 Personal history of colon polyps (principal); D12.3 Benign neoplasm of transverse colon; D12.4 Benign neoplasm of descending colon; K64.8 Other hemorrhoids; K57.30 Diverticulosis of large intestine without perforation or abscess without bleeding; Z79.899 Other long term (current) drug therapy

== ENCOUNTER → 2024-07-04 | Outpatient (CLI) | payer MEDICARE ==
[~2024-07-04] MED LIST changes: -NS 1,000 ML IV ONE
== END ==
LOC: M PLALAB 11:10
PROVIDERS: ATTEND Urology
DX: Z85.46 Personal history of malignant neoplasm of prostate (principal)

== ENCOUNTER → 2024-07-13 | Outpatient (CLI) | payer MEDICARE ==
[~2024-07-13] MED LIST changes: +ISOVUE-300 61% 100ML VIAL As Ordered ONE; +LIDOCAINE 1% MDV 20ML VIAL As Ordered ONE; +methylPREDNISolone SUSP 40MG/ML 1ML VIAL (DEPO MEDROL) As Ordered ONE
== END ==
LOC: M RAD 12:20
PROVIDERS: ATTEND Physician Assistant Surgical
DX: M16.12 Unilateral primary osteoarthritis, left hip (principal)
CPT/HCPCS: 20610; 77002; J1010; Q9967

== ENCOUNTER → 2024-08-12 | Outpatient (CLI) | payer MEDICARE ==
[~2024-08-12] MED LIST changes: -ISOVUE-300 61% 100ML VIAL As Ordered ONE; -LIDOCAINE 1% MDV 20ML VIAL As Ordered ONE; -methylPREDNISolone SUSP 40MG/ML 1ML VIAL (DEPO MEDROL) As Ordered ONE
== END ==
LOC: M PLALAB 08:29
PROVIDERS: ATTEND Urology
DX: C61 Malignant neoplasm of prostate (principal)

== ENCOUNTER → 2024-11-28 | Outpatient (CLI) | payer MEDICARE ==
[~2024-11-28] MED LIST changes: +ISOVUE-300 61% 100ML VIAL As Ordered ONE; +LIDOCAINE 1% MDV 20ML VIAL As Ordered ONE; +methylPREDNISolone SUSP 40MG/ML 1ML VIAL (DEPO MEDROL) As Ordered ONE
== END ==
LOC: M RAD 13:13
PROVIDERS: ATTEND Physician Assistant Surgical
DX: M16.12 Unilateral primary osteoarthritis, left hip (principal)
CPT/HCPCS: 20610; 77002; J1010; Q9967

== ENCOUNTER → 2025-01-02 | Outpatient (CLI) | payer MEDICARE ==
[~2025-01-02] MED LIST changes: -ISOVUE-300 61% 100ML VIAL As Ordered ONE; -LIDOCAINE 1% MDV 20ML VIAL As Ordered ONE; -methylPREDNISolone SUSP 40MG/ML 1ML VIAL (DEPO MEDROL) As Ordered ONE
== END ==
LOC: M PLALAB 14:15
PROVIDERS: ATTEND Urology
DX: C61 Malignant neoplasm of prostate (principal)

== ENCOUNTER → 2025-01-26 | Outpatient (CLI) | payer MEDICARE ==
[2025-01-26 10:54] LABS: HEMATOCRIT 34.6 % (42.0-52.0); HEMOGLOBIN 11.8 g/dl (13.5-17.5); MEAN CORPUSCULAR HEMOGLOBIN 31.1 pg (27.0-33.0); MEAN CORPUSCULAR HGB CONC 34.1 g/dl (32.0-36.5); MEAN CORPUSCULAR VOLUME 91.3 fl (80.0-96.0); PLATELET COUNT, AUTOMATED 173 10^3/uL (150-450); RED BLOOD COUNT 3.79 10^6/uL (4.30-6.10); WHITE BLOOD COUNT 8.1 10^3/uL (4.0-10.0)
[2025-01-26 10:59] LABS: ERYTHROCYTE SEDIMENTATION RATE 34 mm/hr (0-20)
[2025-01-26 11:06] LABS: INR 1.26; PROTHROMBIN TIME 16.1 SECONDS (12.5-14.5)
[2025-01-26 11:20] LABS: ALBUMIN 3.6 G/DL (3.2-5.2); ALKALINE PHOSPHATASE 88 U/L (40-129); ALT/SGPT 45 U/L (7.0-40); AST/SGOT 66 U/L (<34); BILIRUBIN,TOTAL 0.9 MG/DL (0.3-1.2); BLOOD UREA NITROGEN 17 MG/DL (9-23); CALCIUM LEVEL 8.8 MG/DL (8.3-10.6); CARBON DIOXIDE LEVEL 28 MMOL/L (20-31); CHLORIDE LEVEL 105 MMOL/L (98-107); CREATININE FOR GFR 0.77 MG/DL (0.70-1.30); GLOMERULAR FILTRATION RATE > 90.0 (>42); GLUCOSE, FASTING 96 MG/DL (74-106); SODIUM LEVEL 144 MMOL/L (136-145); TOTAL PROTEIN 6.7 G/DL (5.7-8.2)
== END ==
LOC: M RAD 09:56
PROVIDERS: ATTEND Orthopaedic Surgery
DX: Z01.818 Encounter for other preprocedural examination (principal); M16.12 Unilateral primary osteoarthritis, left hip

== ENCOUNTER → 2025-07-11 | Outpatient (CLI) | payer MEDICARE ==
[~2025-07-11] MED LIST changes: +HYDR12.510 PO; -HYDR12CA PO
[2025-07-11 14:52] LABS: PROSTATIC SPECIFIC AG MONITOR 0.4 NG/ML (< 4.00)
[2025-07-12 11:13] LABS: TESTOSTERONE 9.0 NG/DL (241-827)
== END ==
LOC: M PLALAB 11:16
PROVIDERS: ATTEND Urology
DX: C61 Malignant neoplasm of prostate (principal)

== ENCOUNTER → 2025-09-19 | Outpatient (CLI) | payer MEDICARE ==
[2025-09-19 14:12] LABS: PROSTATIC SPECIFIC AG MONITOR 0.83 NG/ML (< 4.00)
[2025-09-20 10:51] LABS: TESTOSTERONE 16.0 NG/DL (241-827)
== END ==
LOC: M PLALAB 10:41
PROVIDERS: ATTEND Urology
DX: C61 Malignant neoplasm of prostate (principal)